=== PATIENT | female | born 1955 | race Caucasian/White ===

== ENCOUNTER 2020-04-19 16:12 | Inpatient (IN) | payer MEDICARE, OTHER ==
[~2020-04-19] VITALS: Ht 167.6 cm; Wt 106.1 kg
--- NOTE | 2020-04-19 16:15 | NUR ---
DR La at the bedside for MSE.
[2020-04-19] MEDS ORDERED: QUET400T PO (16:23)
[2020-04-19] MEDS ORDERED: ESCI20TA PO (16:23)
--- NOTE | 2020-04-19 16:23 | NUR ---
FYI: Telephone numbers patient requested be placed in her record. Sister: [phone] Her sober living facility: [phone]
--- NOTE | 2020-04-19 17:04 | NUR ---
Provided snack, resting in bed, watching TV.
--- NOTE | 2020-04-19 17:15 | NUR ---
Pt is medically cleared for admission to MHU.
[2020-04-19] MEDS ORDERED: IBUPROFEN 600 MG TABLET ONE (17:35)
[2020-04-19] MEDS ORDERED: IBUPROFEN 600 MG TABLET PO ONE (17:45)
--- NOTE | 2020-04-19 18:33 | NUR ---
Offered dinner, pt stated not hungry now. Resting in bed, watching TV, denies pain.
--- NOTE | 2020-04-19 19:00 | NUR ---
Assumed care of patient from day shift nurse Mona. Received patient lying in bed. AAOx2. In no acute distress. Calm and cooperative at this time.
--- NOTE | 2020-04-19 20:20 | NUR ---
Pt. admitted to MHU, under care of Dr. Oro, room 145. Belongs List completed.
[2020-04-19 20:30] VITALS: BP 141/89
[2020-04-19] MEDS ORDERED: BLOOD SUGAR DIAGNOSTIC 1 EACH STRIP VI ONE (20:30)
[2020-04-19] MEDS ORDERED: TEMAZEPAM 7.5 MG CAPSULE PO PRN (20:30)
[2020-04-19] MEDS ORDERED: MAGNESIUM HYDROXIDE 30 ML LIQUID UDC PO PRN (20:30)
[2020-04-19] MEDS ORDERED: MAG HYDROX/AL HYDROX/SIMETH 30 ML LIQUID UDC PO PRN (20:30)
[2020-04-19] MEDS: LORAZEPAM 1 MG TABLET PO PRN (22:27)
--- NOTE | 2020-04-19 23:54 | NUR ---
GPS/ NEW ADMIT A 64Y/O FEMALE FROM ER TO MHU VIA W/C AND ACCOMPANIED BY ER STAFF. PT ON 5150 HOLD FOR GD AND UNDER THE CARE OF CAT AMANDA AND ASPEN AMANDA. ADMITTING DX OF PSYCHOSIS AND HX OF DEPRESSION, BACK PAIN, DEMENTIA WITH BEHAVIORAL DISTURBANCE, POSSIBLE ARTHRITIS. ACCORDING TO 5150, PT WAS ACTING BIZARRE AND WAS FORGETFUL AND DISORIENTED AND CONFUSE. PT WAS LIVING IN SOBER [facility]IVING FACILITY AND WAS SENT TO [facility] ER BEFORE ADMITTING HERE. UPON FACE TO FACE ASSESSMENT, PT APPEARS WITHIN NORMAL A/O X3, AND RESPONSIVE BUT FORGETFUL WITH EXTENSIVE DETAILS, NOT ABLE TO RECALL A LOT OF THINGS. PT UNDERSTAND PLACEMENT HERE AND SAID THIS FACILITY IS BETTER THAN THE OTHER ONE. PT WAS A BIT ANXIOUS AND C/O NOT ABLE TO SLEEP FOR SOME DAYS. PRN ATIVAN WAS GIVEN PER STANDING ORDER. PT SKIN APPEARS INTACT BUT REFUSED UMU AREA CHECK AND REFUSED SHOWER. PT DENIED SI, CFS, HI AND Q 15MINUTE SAFETY CHECKS INITIATED. PT EDUCATED ABOUT UNIT RULES AND POLICY. ADVISEMENT AND RIGHT HANDBOOK GIVEN. WILL CONTINUE MONITOR.
[2020-04-20 07:30] VITALS: BP 120/69
[2020-04-20 07:33] LABS: TOTAL PROTEIN, SERUM 7.2 g/dL (6.4-8.2)
[2020-04-20 07:43] LABS: POTASSIUM 2.4 mmol/L (3.5-5.1)
--- NOTE | 2020-04-20 07:58 | NUR ---
Received a critical lab value of Potassium of 2.4. Epic exchange called and Dr. Hurst called back promptly. stated that he would put orders in for the patient.
[2020-04-20] MEDS ORDERED: LOPERAMIDE HCL 2 MG CAPSULE PO PRN (11:15)
[2020-04-20] MEDS: POTASSIUM CHLORIDE 20 MEQ TAB.PRT.SR PO SCH ×4 (11:32→15:23)
--- NOTE | 2020-04-20 12:23 | NUR ---
ARTIE Initial Discharge Note: Patient currently resides at [facility] [address], [place] [address] ([phone]) and wants to return upon discharge. ARTIE will continue to work with patient and MD to ensure a safe and proper discharge plan.
--- NOTE | 2020-04-20 12:59 | NUR ---
SW Substance abuse intervention: Patient was provided with a brief substance abuse intervention and referred to the following substance abuse programs: [facility] Substance Abuse Self-helpline ([phone]); [facility] [address] [place] [address] ([phone]); [facility] [address] [facility] [address] ([phone]); [facility] ([phone]); [facility] ([phone]); [facility] ([phone]); [facility] ([phone]).
--- NOTE | 2020-04-20 13:00 | NUR ---
ARTIE Coordination of Care: Called 2 times and left a voicemail for [facility] ([phone]) to discuss patient's coordination of care and discharge plan.
--- NOTE | 2020-04-20 13:06 | NUR ---
Social Work Firearms Report (DOJ): [employer] Practitioner completed and submitted a [employer] firearms report for 5150 grave disability certification. A copy of report has been placed in patient chart.
--- NOTE | 2020-04-20 14:27 | NUR ---
ARTIE Coordination of Care: Spoke with Nadine patient's counselor at [facility] ([phone]) and discussed discharge plans back to their facility when patient is stable. Nadine stated that the patient can return should she like. Nadine confirmed the address which is [address] [address]
[2020-04-20] MEDS: ACETAMINOPHEN 325 MG TABLET PO PRN ×2 (15:23→20:42)
[2020-04-20 16:00] VITALS: BP 111/75
[2020-04-20 20:00] VITALS: BP 134/69
[2020-04-20] MEDS: QUETIAPINE FUMARATE 200 MG TABLET PO SCH (20:41)
[2020-04-20] MEDS: LORAZEPAM 1 MG TABLET PO PRN (22:13)
--- NOTE | 2020-04-21 04:57 | NUR ---
GPS/ RECEIVED PT IN BED, AWAKE AND VERBALLY RESPONSIVE. DENIED SI, HI OR INTENT TO HARM SELF AND OTHERS. PT HAD BEEN COOPERATIVE WITH CARE, PRN ATIVAN GIVEN PER C/O UNABLE TO REST. RECHECK AND NOTED EFFECTIVE. Q/15MINS HEAD COUNT ONGOING.
[2020-04-21 07:30] VITALS: BP 123/66
[2020-04-21] MEDS: ESCITALOPRAM OXALATE 10 MG TABLET PO SCH (09:58)
[2020-04-21] MEDS: ACETAMINOPHEN 325 MG TABLET PO PRN ×3 (10:13→22:16)
[2020-04-21 11:29] LABS: BASOPHILS # (AUTO) 0.1 K/uL (0.0-8.0); BASOPHILS % (AUTO) 0.7 % (0.0-2.0); EOSINOPHILS # (AUTO) 0.2 K/uL (0.0-0.7); EOSINOPHILS % (AUTO) 1.5 % (0.0-7.0); HEMATOCRIT 44.2 % (31.2-41.9); HEMOGLOBIN 14.6 g/dL (10.9-14.3); LYMPHOCYTES # (AUTO) 2.8 K/uL (20.0-40.0); LYMPHOCYTES % (AUTO) 24.7 % (20.5-51.5); MEAN CORPUSCULAR HEMOGLOBIN 28.8 uug (24.7-32.8); MEAN CORPUSCULAR HGB CONC 33 g/dL (32.3-35.6); MEAN CORPUSCULAR VOLUME 87.6 fL (75.5-95.3); MONOCYTES # (AUTO) 0.8 K/uL (2.0-10.0); MONOCYTES % (AUTO) 6.6 % (0.0-11.0); NEUTROPHILS # (AUTO) 7.6 K/uL (1.8-8.9); NEUTROPHILS % (AUTO) 66.5 % (38.5-71.5); PLATELET COUNT (AUTO) 331 K/uL (179-408); RED BLOOD CELL COUNT(AUTO) 5.04 MIL/uL (3.63-4.92); WHITE BLOOD COUNT (AUTO) 11.4 K/uL (3.8-11.8)
[2020-04-21 12:14] LABS: CREATININE 1.1 mg/dL (0.6-1.3); POTASSIUM 3.2 mmol/L (3.5-5.1)
[2020-04-21 16:58] VITALS: BP 128/73
--- NOTE | 2020-04-21 20:00 | NUR ---
received patient in her room in bed. she is noted awake A/O x 3. upon interview, she stated, "I am here because I made a mistake". Pt is able to verbalized feelings. She denied SI/HI/VH/AH. she is able to CFS. her mood is anxious, Affect is low. Patient is reassured for her safety. safety and fall precaution in place.V/S vanessa at this time. Will continue to monitor.
[2020-04-21 20:02] VITALS: BP 111/62
[2020-04-21 20:03] VITALS: BP 118/50
[2020-04-21] MEDS: QUETIAPINE FUMARATE 200 MG TABLET PO SCH (21:00)
[2020-04-21 21:07] VITALS: BP 119/88
[2020-04-21] MEDS: LORAZEPAM 1 MG TABLET PO PRN (22:10)
--- NOTE | 2020-04-21 22:15 | NUR ---
patient noted anxious, restless. she requested a PO PRN medication for anxiety. Ativan 1mg po prn was given. will continue to monitor.
[2020-04-22 07:30] VITALS: BP 117/75
[2020-04-22] MEDS ORDERED: POTASSIUM CHLORIDE 20 MEQ TAB.PRT.SR PO ONE (08:45)
[2020-04-22] MEDS: ESCITALOPRAM OXALATE 10 MG TABLET PO SCH (09:26)
[2020-04-22 16:00] VITALS: BP 126/83
[2020-04-22] MEDS: ACETAMINOPHEN 325 MG TABLET PO PRN ×2 (16:00→22:17)
--- NOTE | 2020-04-22 18:02 | NUR ---
Patient spent most of the day in bed despite encouragement to get up. Offered some outside time but patient declined. Very isolative. Many offers given to patient to take a shower and finally patient complied. When talking to the patient she expressed not knowing how she got here or why she was here. Patient stated " I blacked out at my sober living , I hope I can go back there." Field Technical Assistant provided meaningful conversation , encouragement and continued to provide a safe environment
[2020-04-22 20:00] VITALS: BP 119/65
--- NOTE | 2020-04-22 20:30 | NUR ---
RECEIVED PATIENT IN HER ROOM IN BED, SHE IS NOTED AWAKE A/O X 3. CALM AND PLEASANT UPON APPROACHED. SHE CONTINUE WITHDRAWN, LOW MOOD, BLUNTED AFFECT. PATIENT IS GOAL ORIENTED. V/S STABLE. PATIENT IS REASSURED FOR HER SAFETY. SAFETY AND FALL PRECAUTION IN PLACE. WILL CONTINUE TO MONITOR.
[2020-04-22] MEDS: QUETIAPINE FUMARATE 200 MG TABLET PO SCH (20:51)
[2020-04-23] MEDS: LORAZEPAM 1 MG TABLET PO PRN ×2 (01:28→21:11)
[2020-04-23] MEDS: ACETAMINOPHEN 325 MG TABLET PO PRN ×3 (05:14→20:09)
[2020-04-23 07:08] LABS: CREATININE 0.9 mg/dL (0.6-1.3); POTASSIUM 3.5 mmol/L (3.5-5.1)
[2020-04-23 07:12] LABS: BASOPHILS # (AUTO) 0.1 K/uL (0.0-8.0); BASOPHILS % (AUTO) 1.2 % (0.0-2.0); EOSINOPHILS # (AUTO) 0.2 K/uL (0.0-0.7); EOSINOPHILS % (AUTO) 2.5 % (0.0-7.0); HEMATOCRIT 39.8 % (31.2-41.9); HEMOGLOBIN 13.2 g/dL (10.9-14.3); LYMPHOCYTES # (AUTO) 3.3 K/uL (20.0-40.0); LYMPHOCYTES % (AUTO) 35.3 % (20.5-51.5); MEAN CORPUSCULAR HEMOGLOBIN 29.3 uug (24.7-32.8); MEAN CORPUSCULAR HGB CONC 33 g/dL (32.3-35.6); MEAN CORPUSCULAR VOLUME 88.2 fL (75.5-95.3); MONOCYTES # (AUTO) 0.7 K/uL (2.0-10.0); MONOCYTES % (AUTO) 7.1 % (0.0-11.0); NEUTROPHILS # (AUTO) 5.1 K/uL (1.8-8.9); NEUTROPHILS % (AUTO) 53.9 % (38.5-71.5); PLATELET COUNT (AUTO) 286 K/uL (179-408); RED BLOOD CELL COUNT(AUTO) 4.51 MIL/uL (3.63-4.92); WHITE BLOOD COUNT (AUTO) 9.4 K/uL (3.8-11.8)
[2020-04-23 07:30] VITALS: BP 106/53
[2020-04-23] MEDS: ESCITALOPRAM OXALATE 10 MG TABLET PO SCH (08:54)
--- NOTE | 2020-04-23 13:22 | NUR ---
Received patient awake in bed in stable condition. Patient in bed of the time. Refuse to participates in therapy, isolated. Patient compliant with medication. Patient no complaint of pain/discomfort. not in distress. will continue monitor
[2020-04-23 15:24] VITALS: BP 106/71
[2020-04-23 20:00] VITALS: BP 114/73
[2020-04-23] MEDS: QUETIAPINE FUMARATE 200 MG TABLET PO SCH (20:09)
[2020-04-24 07:30] VITALS: BP 136/71
[2020-04-24] MEDS: ESCITALOPRAM OXALATE 10 MG TABLET PO SCH (08:49)
[2020-04-24] MEDS: ACETAMINOPHEN 325 MG TABLET PO PRN ×2 (09:24→19:00)
[2020-04-24] MEDS ORDERED: LORAZEPAM 2 MG/1 ML VIAL IM ONE (09:45)
[2020-04-24] MEDS ORDERED: diphenhydrAMINE 50 MG/1 ML VIAL IM ONE (09:45)
[2020-04-24] MEDS ORDERED: HALOPERIDOL LACTATE 5 MG/1 ML VIAL IM ONE (09:45)
[2020-04-24] MEDS: METFORMIN HCL 500 MG TABLET PO SCH ×2 (13:45→17:25)
[2020-04-24] MEDS: LORAZEPAM 1 MG TABLET PO PRN ×2 (14:57→21:24)
[2020-04-24 16:13] VITALS: BP 116/50
[2020-04-24 20:00] VITALS: BP 141/76
[2020-04-24] MEDS: QUETIAPINE FUMARATE 200 MG TABLET PO SCH (20:19)
--- NOTE | 2020-04-24 21:13 | NUR ---
Received pt resting in bed. No acute distress noted. No complaints of pain/ discomfort. Denies SI/HI. Due med given as ordered. Cooperative. Safety measures maintained. Will continue to monitor.
[2020-04-25 07:30] VITALS: BP 170/95
[2020-04-25] MEDS: ESCITALOPRAM OXALATE 10 MG TABLET PO SCH (08:44)
[2020-04-25] MEDS: METFORMIN HCL 500 MG TABLET PO SCH ×3 (08:44→18:03)
[2020-04-25] MEDS: ACETAMINOPHEN 325 MG TABLET PO PRN ×2 (08:48→15:00)
[2020-04-25] MEDS: LORAZEPAM 1 MG TABLET PO PRN ×2 (10:15→15:00)
--- NOTE | 2020-04-25 13:01 | NUR ---
Social Work Note/Individual Therapy: forestry worker met with patient for brief counseling. forestry worker assessed for patient's depressed mood. Patient reports that she no longer feels depressed and that she is in a "better mood". Patient reports that upon admission she was not depressed and that she made a mistake and "blacked out". Patient expressed that she is feeling better at the Hospital. forestry worker actively listened and provided emotional support.
[2020-04-25 16:00] VITALS: BP 128/66
[2020-04-25 20:14] VITALS: BP 118/90
[2020-04-25] MEDS: QUETIAPINE FUMARATE 200 MG TABLET PO SCH (21:19)
--- NOTE | 2020-04-25 22:36 | NUR ---
Received patient in bed, calm and cooperative, very pleasant, takes her medication, interacts with staff and peers. No sign or symptom of respiratory distress, breathing even, unlabored. No indication of pain or discomfort. No behavioral issue. Will remain in a psych facility for further evaluation and treatment.
[2020-04-26 07:30] VITALS: BP 106/67
[2020-04-26] MEDS: METFORMIN HCL 500 MG TABLET PO SCH ×2 (09:19→17:35)
[2020-04-26] MEDS: ESCITALOPRAM OXALATE 10 MG TABLET PO SCH (09:19)
--- NOTE | 2020-04-26 09:39 | NUR ---
Social Work Coordination of Care: chamber worker spoke with officer of the OD from [facility] ([phone]) who scheduled an apt on May 08 at 10AM via telephone for intake evaluation.
[2020-04-26] MEDS: ACETAMINOPHEN 325 MG TABLET PO PRN (10:17)
[2020-04-26] MEDS: LORAZEPAM 1 MG TABLET PO PRN ×2 (14:42→23:36)
[2020-04-26 16:44] VITALS: BP 111/65
--- NOTE | 2020-04-26 20:13 | NUR ---
Patient is AAO x 2, no episodes of confusion or agitation noted during shift. NO acute disorder or any SOB noted. NO SI during care and assessment. Patient compliant with care and medication therapy. Participates in group activities. Independent with most self care. Needs attended, safety measures in place and will continue with care.
[2020-04-26] MEDS: QUETIAPINE FUMARATE 200 MG TABLET PO SCH (21:07)
[2020-04-26 21:26] VITALS: BP 131/77
--- NOTE | 2020-04-26 23:37 | NUR ---
patient c/o anxiety. ativan 1 mg po given for anxiety.
--- NOTE | 2020-04-27 00:37 | NUR ---
PATIENT IS CALM NOW. PRN EFFECTIVE.
--- NOTE | 2020-04-27 07:04 | NUR ---
SLEPT 6.45 HRS THROUGH THE NIGHT. REMAIN CALM AND COOPERATIVE WITH MEDS AND CARE.
[2020-04-27 07:30] VITALS: BP 127/58
--- NOTE | 2020-04-27 08:43 | NUR ---
Social Work Discharge: Patient will be discharged back to her Sober Living Facility [facility] [address] [facility] ([phone]). Patient will be picked up via taxi at 1pm. Nadine patients counselor at the facility ([phone]) who stated that the patient can return today. Patient is alert and oriented x3. Patient is aware and agreeable with discharge plan. Patient will be following up with (primary care physician) Dr. Melchor [address] [address] ([phone]) and has an appointment scheduled on May 03, 2020 at 11:20AM. Patient will be following up with her psychiatrist at [address] [address] ([phone]) and has an appointment scheduled on May 08 at 10AM for (psychiatry intake evaluation) via telephone. Patient was provided with a brief substance abuse intervention and referred to the following substance abuse programs: [facility] Substance Abuse Self-helpline ([phone]); [facility] [address] [place] [address] ([phone]); [address] [address] ([phone]); [facility] ([phone]); [facility] ([phone]); [facility] ([phone]); [facility] ([phone]). Patient presents with euthymic mood and congruent affect. Addendum: 04/27/20 at 0845 by ARTIE SULTANA Disregard note
--- NOTE | 2020-04-27 08:45 | NUR ---
Social Work Discharge Note: Social Work Discharge: Patient will be discharged to [address] [facility] ([phone]). Patient will be picked up via taxi at 1pm. Nadine stewart counselor at the facility ([phone]) who stated that the patient can return today. Patient is alert and oriented x3. Patient is aware and agreeable with discharge plan. Patient will be following up with (primary care physician) Dr. Melchor [address] [facility] [address] [place] [address] ([phone]) and has an appointment scheduled on May 03, 2020 at 11:20AM. Patient will be following up with her psychiatrist at [address] [address] ([phone]) and has an appointment scheduled on May 08 at 10AM for (psychiatry intake evaluation) via telephone. Patient was provided with a brief substance abuse intervention and referred to the following substance abuse programs: [facility]stance Abuse Self-helpline ([phone]); [facility] [address] [place] [address] ([phone]); [facility] [address] [facility] [address] ([phone]); [facility] ([phone]); [facility] ([phone]); [facility] ([phone]); [facility] ([phone]). Patient presents with euthymic mood and congruent affect.
[2020-04-27] MEDS: ESCITALOPRAM OXALATE 10 MG TABLET PO SCH (08:49)
[2020-04-27] MEDS: METFORMIN HCL 500 MG TABLET PO SCH (08:50)
[2020-04-27] MEDS: ACETAMINOPHEN 325 MG TABLET PO PRN (08:55)
[2020-04-27] MEDS: LORAZEPAM 1 MG TABLET PO PRN (13:35)
== END 2020-04-27 14:00 | disposition home or self-care (01) | DRG 885 ==
LOC: ER 16:15 → GPS 20:10
PROVIDERS: ADMIT Psychiatry & Neurology Psychiatry; ATTEND Internal Medicine
DX: F32.3 Major depressive disorder, single episode, severe with psychotic features (principal); F03.91 Unspecified dementia, unspecified severity, with behavioral disturbance; F23 Brief psychotic disorder; E87.6 Hypokalemia; E11.9 Type 2 diabetes mellitus without complications; F32.9 Major depressive disorder, single episode, unspecified; F41.9 Anxiety disorder, unspecified; Z73.6 Limitation of activities due to disability; R53.1 Weakness; F39 Unspecified mood [affective] disorder; Z79.84 Long term (current) use of oral hypoglycemic drugs; R19.7 Diarrhea, unspecified
CPT/HCPCS: 36415; 71045; 85025; 93005; A4663

== ENCOUNTER 2023-05-01 22:59 | Inpatient (IN) | payer MEDICARE, OTHER ==
[~2023-05-01] VITALS: Ht 170.2 cm; Wt 96.2 kg
[2023-05-01] MEDS ORDERED: HYDROCODONE/APAP 5-325MG TABLET PO ONE (23:30)
[2023-05-02] MEDS ORDERED: SENN8.6T19 PO
[2023-05-02] MEDS ORDERED: MULT-213 PO
[2023-05-02] MEDS ORDERED: FURO40TA5 PO
[2023-05-02] MEDS ORDERED: ACET-73 PO
[2023-05-02] MEDS ORDERED: GABA-532 PO
[2023-05-02] MEDS ORDERED: QUET50TA PO
[2023-05-02] MEDS ORDERED: NALO4SPR NS
[2023-05-02] MEDS ORDERED: NICO-463 BC
[2023-05-02] MEDS ORDERED: OMEP40CA21 PO
[2023-05-02] MEDS ORDERED: APIX5TAB PO
[2023-05-02] MEDS ORDERED: METO-295 PO
[2023-05-02] MEDS ORDERED: BUPR1FIL5 SL
[2023-05-02] MEDS ORDERED: INSU100V39 SQ
[2023-05-02] MEDS ORDERED: BENZ200C53 PO
[2023-05-02] MEDS ORDERED: AMIO200T5 PO
[2023-05-02] MEDS ORDERED: CYCL5TAB PO
[2023-05-02] MEDS ORDERED: BUSP5TAB3 PO
[2023-05-02] MEDS ORDERED: DOCU100C36 PO
[2023-05-02] MEDS ORDERED: L. A1TAB16 PO
[2023-05-02] MEDS ORDERED: ALBU2.5V38 IH
[2023-05-02] MEDS ORDERED: PROP20TA7 PO
[2023-05-02] MEDS ORDERED: OXCA150T5 PO
[2023-05-02] MEDS ORDERED: BUPR-319 PO
[2023-05-02] MEDS ORDERED: LINA145C PO
[2023-05-02] MEDS ORDERED: HYDR-501 PO
[2023-05-02 00:05] LABS: HEMOGLOBIN 9.6 g/dL (10.9-14.3)
[2023-05-02 00:08] LABS: BASOPHILS % (AUTO) 0.6 % (0.0-2.0); DIFFERENTIAL COMMENT 0; EOSINOPHILS % (AUTO) 0.6 % (0.0-7.0); HEMATOCRIT 29.1 % (31.2-41.9); LYMPHOCYTES # (AUTO) 1.7 K/uL (0.8-4.8); LYMPHOCYTES % (AUTO) 20.2 % (20.5-51.5); MEAN CORPUSCULAR HEMOGLOBIN 30.4 uug (24.7-32.8); MEAN CORPUSCULAR HGB CONC 33 g/dL (32.3-35.6); MEAN CORPUSCULAR VOLUME 92.1 fL (75.5-95.3); MONOCYTES # (AUTO) 0.6 K/uL (0.1-1.30); MONOCYTES % (AUTO) 6.7 % (0.0-11.0); NEUTROPHILS # (AUTO) 6.1 K/uL (1.8-8.9); NEUTROPHILS % (AUTO) 71.9 % (38.5-71.5); PLATELET COUNT (AUTO) 265 K/uL (179-408); RED BLOOD CELL COUNT(AUTO) 3.15 MIL/uL (3.63-4.92); RED CELL DISTRIBUTION WIDTH 15.2 % (12.3-17.7); WHITE BLOOD COUNT (AUTO) 8.5 K/uL (3.8-11.8)
[2023-05-02 00:16] LABS: ALANINE AMINOTRANSFERASE 18 U/L (14-59); ALKALINE PHOSPHATASE 76 U/L (50-136); ASPARTATE AMINOTRANSFERASE 11 U/L (15-37); BILIRUBIN,DIRECT 0.2 mg/dL (0.0-0.2); BILIRUBIN,TOTAL 0.3 mg/dL (0.2-1.0); CALCIUM 9.3 mg/dL (8.5-10.1); CARBON DIOXIDE 39 mmol/L (21-32); CHLORIDE 95 mmol/L (98-107); CREATININE 1.1 mg/dL (0.6-1.3); GLUCOSE 134 mg/dL (74-106); SODIUM SERUM 136 mmol/L (136-145); TOTAL PROTEIN, SERUM 6.5 g/dL (6.4-8.2); UREA NITROGEN, BLOOD 11 mg/dL (7-18)
[2023-05-02] MEDS: POTASSIUM CHLORIDE 50 ML IV SCH ×2 (00:20→02:20)
[2023-05-02 00:24] LABS: POTASSIUM 2.7 mmol/L (3.5-5.1)
[2023-05-02] MEDS ORDERED: POTASSIUM CHLORIDE 100 ML ONE (00:53)
[2023-05-02 02:33] LABS: *BILIRUBIN,URIN NEGATIVE (NEGATIVE); *CLARITY,URINE CLEAR (CLEAR); *COLOR,URINE YELLOW (YELLOW); *KETONES,URINE NEGATIVE (NEGATIVE); *PROTEIN,URINE 2+ (NEGATIVE); LEUKOCYTE ESTERASE ,URINE TRACE (NEGATIVE); NITRITE, URINE NEGATIVE (NEGATIVE); UGLUCOSE NEGATIVE (NEGATIVE)
[2023-05-02 02:42] LABS: *BLOOD, URINE TRACE (NEGATIVE)
[2023-05-02] MEDS ORDERED: POTASSIUM CHLORIDE 20 MEQ TAB.PRT.SR PO ONE (02:45)
[2023-05-02 03:00] LABS: BACTERIA,URINE MANY /HPF (NONE SEEN); SQUAMOUS EPITHELIAL CELL,UR MODERATE /HPF (NONE SEEN)
[2023-05-02 03:04] LABS: YEAST,URINE MODERATE /HPF (NONE SEEN)
[2023-05-02 03:06] LABS: COARSE GRANULAR CASTS,URINE 0-3 /LPF
[2023-05-02] MEDS ORDERED: POTASSIUM CHLORIDE 20 MEQ TAB.PRT.SR ONE (03:12)
[2023-05-02] MEDS ORDERED: REMEDY ESSENTIAL ZINC PASTE 113 GM TP PRN (04:15)
[2023-05-02] MEDS ORDERED: ONDANSETRON 4 MG/2 ML VIAL IV PRN (04:15)
[2023-05-02] MEDS ORDERED: ACETAMINOPHEN 325 MG TABLET PO PRN (04:15)
[2023-05-02] MEDS ORDERED: ZOLPIDEM 5 MG TABLET PO PRN (04:15)
[2023-05-02] MEDS ORDERED: MAGNESIUM HYDROXIDE 30 ML LIQUID UDC PO PRN (04:15)
[2023-05-02] MEDS ORDERED: SENNOSIDES 1 TABLET PO PRN (04:15)
[2023-05-02 04:20] VITALS: BP 95/50; TEMP 97.9; O2SAT 98
[2023-05-02 06:55] LABS: BASOPHILS # (AUTO) 0.1 K/UL (0.0-0.2); BASOPHILS % (AUTO) 0.7 % (0.0-2.0); DIFFERENTIAL COMMENT 0; EOSINOPHILS # (AUTO) 0.1 K/uL (0.0-0.7); EOSINOPHILS % (AUTO) 0.8 % (0.0-7.0); HEMATOCRIT 27.1 % (31.2-41.9); LYMPHOCYTES # (AUTO) 1.8 K/uL (0.8-4.8); LYMPHOCYTES % (AUTO) 25.3 % (20.5-51.5); MEAN CORPUSCULAR HEMOGLOBIN 30.7 uug (24.7-32.8); MEAN CORPUSCULAR HGB CONC 33 g/dL (32.3-35.6); MEAN CORPUSCULAR VOLUME 92.5 fL (75.5-95.3); MONOCYTES # (AUTO) 0.6 K/uL (0.1-1.30); MONOCYTES % (AUTO) 8.4 % (0.0-11.0); NEUTROPHILS # (AUTO) 4.6 K/uL (1.8-8.9); NEUTROPHILS % (AUTO) 64.8 % (38.5-71.5); PLATELET COUNT (AUTO) 248 K/uL (179-408); RED BLOOD CELL COUNT(AUTO) 2.93 MIL/uL (3.63-4.92); RED CELL DISTRIBUTION WIDTH 15.2 % (12.3-17.7); WHITE BLOOD COUNT (AUTO) 7.1 K/uL (3.8-11.8)
[2023-05-02 07:12] LABS: CALCIUM 9.3 mg/dL (8.5-10.1); PHOSPHOROUS 2.9 mg/dL (2.5-4.9)
[2023-05-02 07:54] LABS: POTASSIUM 2.8 mmol/L (3.5-5.1)
[2023-05-02] MEDS ORDERED: ROSU40TA PO (08:47)
[2023-05-02] MEDS: OXCARBAZEPINE 150 MG TABLET PO SCH ×3 (08:52→17:37)
[2023-05-02] MEDS: GABAPENTIN 300 MG CAPSULE PO SCH ×3 (08:52→17:36)
[2023-05-02] MEDS: buPROPion XL 150 MG TAB.SR.24H PO SCH (08:52)
[2023-05-02] MEDS: DOCUSATE SODIUM 100 MG CAPSULE PO SCH ×2 (08:53→17:36)
[2023-05-02] MEDS: busPIRone 5 MG TABLET PO SCH ×3 (08:53→17:36)
[2023-05-02] MEDS: APIXABAN 5 MG TABLET PO SCH ×2 (08:54→17:36)
[2023-05-02] MEDS: AMIODARONE HCL 200 MG TABLET PO SCH (08:55)
[2023-05-02] MEDS: MULTIVITAMINS,THERAPEUTIC TABLET PO SCH (08:57)
[2023-05-02] MEDS ORDERED: NICO4GUM38 BC (08:57)
[2023-05-02] MEDS ORDERED: PETR113O TP (08:57)
[2023-05-02] MEDS: FUROSEMIDE 40 MG TABLET PO SCH (08:57)
[2023-05-02] MEDS ORDERED: Linaclotide (Linzess) 145 MCG) PO SCH (09:00)
[2023-05-02] MEDS: POTASSIUM CHLORIDE 10 MEQ TAB.PRT.SR PO SCH ×2 (09:33→11:37)
[2023-05-02] MEDS: OXYCODONE/APAP 5-325 MG TABLET PO PRN ×2 (11:38→21:17)
[2023-05-02] MEDS: CLONAZEPAM 1 MG TABLET PO SCH ×2 (11:38→17:36)
[2023-05-02 12:00] VITALS: BP 110/68; TEMP 97.7; O2SAT 97
[2023-05-02 16:01] VITALS: BP 104/55; TEMP 98.3; O2SAT 95
[2023-05-02 20:50] VITALS: O2SAT 95
[2023-05-02] MEDS: QUETIAPINE FUMARATE 100 MG TABLET PO SCH (21:17)
[2023-05-03 06:00] VITALS: BP 99/69; TEMP 97.6; O2SAT 93
[2023-05-03 06:40] LABS: BASOPHILS # (AUTO) 0.1 K/UL (0.0-0.2); BASOPHILS % (AUTO) 0.9 % (0.0-2.0); EOSINOPHILS # (AUTO) 0.1 K/uL (0.0-0.7); EOSINOPHILS % (AUTO) 0.9 % (0.0-7.0); HEMOGLOBIN 9.3 g/dL (10.9-14.3); LYMPHOCYTES # (AUTO) 1.9 K/uL (0.8-4.8); LYMPHOCYTES % (AUTO) 30.1 % (20.5-51.5); MEAN CORPUSCULAR HEMOGLOBIN 30.3 uug (24.7-32.8); MEAN CORPUSCULAR HGB CONC 32 g/dL (32.3-35.6); MEAN CORPUSCULAR VOLUME 94.2 fL (75.5-95.3); MONOCYTES # (AUTO) 0.6 K/uL (0.1-1.30); MONOCYTES % (AUTO) 9.7 % (0.0-11.0); NEUTROPHILS # (AUTO) 3.7 K/uL (1.8-8.9); NEUTROPHILS % (AUTO) 58.4 % (38.5-71.5); PLATELET COUNT (AUTO) 255 K/uL (179-408); RED BLOOD CELL COUNT(AUTO) 3.08 MIL/uL (3.63-4.92); RED CELL DISTRIBUTION WIDTH 15.6 % (12.3-17.7); WHITE BLOOD COUNT (AUTO) 6.4 K/uL (3.8-11.8)
[2023-05-03 07:01] LABS: CALCIUM 9.2 mg/dL (8.5-10.1); CREATININE 1.2 mg/dL (0.6-1.3); DIFFERENTIAL COMMENT 1; PHOSPHOROUS 3.2 mg/dL (2.5-4.9); POTASSIUM 3.7 mmol/L (3.5-5.1)
[2023-05-03] MEDS: FUROSEMIDE 40 MG TABLET PO SCH (09:37)
[2023-05-03] MEDS: MULTIVITAMINS,THERAPEUTIC TABLET PO SCH (09:37)
[2023-05-03] MEDS: GABAPENTIN 300 MG CAPSULE PO SCH ×3 (09:37→18:15)
[2023-05-03] MEDS: CLONAZEPAM 1 MG TABLET PO SCH ×2 (09:37→18:15)
[2023-05-03] MEDS: busPIRone 5 MG TABLET PO SCH ×3 (09:37→18:15)
[2023-05-03] MEDS: DOCUSATE SODIUM 100 MG CAPSULE PO SCH ×2 (09:38→18:14)
[2023-05-03] MEDS: buPROPion XL 150 MG TAB.SR.24H PO SCH (09:38)
[2023-05-03] MEDS: OXCARBAZEPINE 150 MG TABLET PO SCH ×3 (09:39→18:16)
[2023-05-03] MEDS: AMIODARONE HCL 200 MG TABLET PO SCH (09:41)
[2023-05-03] MEDS: APIXABAN 5 MG TABLET PO SCH ×2 (09:42→18:17)
[2023-05-03] MEDS: OXYCODONE/APAP 5-325 MG TABLET PO PRN ×2 (09:52→15:57)
[2023-05-03 11:30] VITALS: BP 93/45; TEMP 98.6; O2SAT 91
[2023-05-03 11:46] VITALS: BP 93/45; TEMP 98.6; O2SAT 90
[2023-05-03] MEDS ORDERED: ALBUTEROL SULFATE 2.5 MG/ 0.5 ML NEBU NEB PRN (15:00)
[2023-05-03] MEDS ORDERED: IPRATROPIUM BROMIDE 0.5 MG/2.5 ML NEBU NEB PRN (15:00)
[2023-05-03] MEDS: methylPREDNISolone SOD SUCC 40 MG/ML VIAL IV SCH ×2 (16:03→22:00)
[2023-05-03 16:12] VITALS: BP 113/53; TEMP 98.3; O2SAT 100
[2023-05-03] MEDS ORDERED: CEFTRIAXONE 1 G in IV DEXTROSE 5% 50 ML IV SCH (18:00)
[2023-05-03 20:00] VITALS: BP 105/55; TEMP 97.9; O2SAT 94
[2023-05-03] MEDS ORDERED: FLUCONAZOLE 200 MG/NS 100ML IV 100 MG in PREMIXED 1 EACH IV ONE (20:00)
[2023-05-03] MEDS: QUETIAPINE FUMARATE 100 MG TABLET PO SCH (20:27)
[2023-05-03] MEDS: HYDROCODONE/APAP 10-325 MG TABLET PO PRN (21:14)
[2023-05-04 04:42] VITALS: BP 112/55; TEMP 98.2; O2SAT 94
[2023-05-04] MEDS: methylPREDNISolone SOD SUCC 40 MG/ML VIAL IV SCH ×2 (05:28→13:47)
[2023-05-04 06:40] LABS: BASOPHILS % (AUTO) 0.2 % (0.0-2.0); HEMATOCRIT 27.2 % (31.2-41.9); HEMOGLOBIN 9.2 g/dL (10.9-14.3); LYMPHOCYTES # (AUTO) 0.5 K/uL (0.8-4.8); LYMPHOCYTES % (AUTO) 7.4 % (20.5-51.5); MEAN CORPUSCULAR HGB CONC 34 g/dL (32.3-35.6); MEAN CORPUSCULAR VOLUME 91.8 fL (75.5-95.3); MONOCYTES # (AUTO) 0.1 K/uL (0.1-1.30); MONOCYTES % (AUTO) 0.8 % (0.0-11.0); NEUTROPHILS # (AUTO) 6.2 K/uL (1.8-8.9); NEUTROPHILS % (AUTO) 91.6 % (38.5-71.5); PLATELET COUNT (AUTO) 263 K/uL (179-408); RED BLOOD CELL COUNT(AUTO) 2.97 MIL/uL (3.63-4.92); RED CELL DISTRIBUTION WIDTH 15.3 % (12.3-17.7); WHITE BLOOD COUNT (AUTO) 6.8 K/uL (3.8-11.8)
[2023-05-04 06:49] LABS: DIFFERENTIAL COMMENT 1
[2023-05-04 06:59] LABS: CALCIUM 9.1 mg/dL (8.5-10.1); CREATININE 1.2 mg/dL (0.6-1.3); PHOSPHOROUS 2.8 mg/dL (2.5-4.9); POTASSIUM 3.9 mmol/L (3.5-5.1)
[2023-05-04] MEDS: HYDROCODONE/APAP 10-325 MG TABLET PO PRN (07:09)
[2023-05-04] MEDS: buPROPion XL 150 MG TAB.SR.24H PO SCH (08:56)
[2023-05-04] MEDS: busPIRone 5 MG TABLET PO SCH ×3 (08:56→16:04)
[2023-05-04] MEDS: DOCUSATE SODIUM 100 MG CAPSULE PO SCH ×2 (08:56→16:04)
[2023-05-04] MEDS: MULTIVITAMINS,THERAPEUTIC TABLET PO SCH (08:56)
[2023-05-04] MEDS: GABAPENTIN 300 MG CAPSULE PO SCH ×3 (08:56→16:04)
[2023-05-04] MEDS: CLONAZEPAM 1 MG TABLET PO SCH ×2 (08:56→16:04)
[2023-05-04] MEDS: AMIODARONE HCL 200 MG TABLET PO SCH (08:57)
[2023-05-04] MEDS: APIXABAN 5 MG TABLET PO SCH ×2 (08:57→16:05)
[2023-05-04] MEDS: FUROSEMIDE 40 MG TABLET PO SCH (08:57)
[2023-05-04] MEDS: OXCARBAZEPINE 150 MG TABLET PO SCH ×3 (09:27→16:04)
[2023-05-04 11:47] VITALS: BP 108/58; TEMP 98.9; O2SAT 93
[2023-05-04 13:00] VITALS: O2SAT 94
[2023-05-04] MEDS ORDERED: METH4TAB3 PO (14:07)
[2023-05-04] MEDS ORDERED: HYDR-4209 PO (14:07)
[2023-05-04] MEDS ORDERED: ALBU2.5V13 NEB (14:07)
[2023-05-04] MEDS ORDERED: POTA10CA43 PO (14:16)
[2023-05-04] MEDS ORDERED: IPRA0.2S6 NEB (14:19)
[2023-05-04] MEDS ORDERED: FLUT1BLS IH (14:19)
[2023-05-04 16:01] VITALS: BP 112/56; TEMP 97.7; O2SAT 95
== END 2023-05-04 17:00 | DRG 758 ==
LOC: ER 23:02 → TELE3 05-02 03:45 → MEDSURG3 05-02 12:30
PROVIDERS: ADMIT Nurse Practitioner Acute Care; ATTEND Internal Medicine
DX: B37.49 Other urogenital candidiasis (principal); E44.1 Mild protein-calorie malnutrition; J44.1 Chronic obstructive pulmonary disease with (acute) exacerbation; J98.11 Atelectasis; E87.6 Hypokalemia; S40.012A Contusion of left shoulder, initial encounter; W19.XXXA Unspecified fall, initial encounter; Z91.81 History of falling; Y92.129 Unspecified place in nursing home as the place of occurrence of the external cause; R26.81 Unsteadiness on feet; E66.9 Obesity, unspecified; E78.5 Hyperlipidemia, unspecified; I48.91 Unspecified atrial fibrillation; B96.89 Other specified bacterial agents as the cause of diseases classified elsewhere; G89.29 Other chronic pain; F32.A Depression, unspecified; E88.09 Other disorders of plasma-protein metabolism, not elsewhere classified; E11.9 Type 2 diabetes mellitus without complications; D64.9 Anemia, unspecified; F99 Mental disorder, not otherwise specified; Z68.33 Body mass index [BMI] 33.0-33.9, adult; M15.9 Polyosteoarthritis, unspecified; M48.9 Spondylopathy, unspecified; I50.9 Heart failure, unspecified; Z79.899 Other long term (current) drug therapy; Z99.81 Dependence on supplemental oxygen; Z79.01 Long term (current) use of anticoagulants; Z87.891 Personal history of nicotine dependence; Z88.8 Allergy status to other drugs, medicaments and biological substances
CPT/HCPCS: 36415; 70450; 71045; 71250; 73020; 83550; 83735; 84100; 84443; 84484; 85025; 85730; 93005; A4663; G0378; J0696; J1450; J2920; J3480; J7040; J7060